=== PATIENT | female | born 1965 | race Caucasian/White ===

== ENCOUNTER → 2025-01-16 | Outpatient (CLI) | payer MEDICAID, SELFPAY ==
[2025-01-16 13:36] LABS: Albumin, Serum 4.5 gm/dL (3.5-5.0); Anion Gap 10 (7-16); BUN/Creatinine Ratio 16 Ratio (12-20); Blood Urea Nitrogen 14 mg/dL (9-23); Calcium 9.9 mg/dL (8.3-10.6); Calcium (Corrected) 9.9 mg/dL (8.5-10.1); Carbon Dioxide 26.5 mMol/L (20.0-31.0); Chloride 105 mMol/L (98-107); Creatinine (Component) 0.9 mg/dL (0.6-1.3); Glucose 104 mg/dL (74-106); Osmolality,Calculated 281 (275-295); Phosphorous 3.8 mg/dL (2.4-5.1); Potassium 4.2 mMol/L (3.4-5.1); Sodium 141 mMol/L (136-145); eGFR > 60 See Note
== END | disposition home or self-care (01) ==
PROVIDERS: PCP Registered Nurse; Referring Provider Orthopaedic Surgery; Visit Provider Orthopaedic Surgery
DX: Z01.818 Encounter for other preprocedural examination (principal)
CPT/HCPCS: 36415; 80069

== ENCOUNTER → 2025-01-21 | Outpatient (CLI) | payer MEDICAID, SELFPAY ==
--- NOTE | 2025-01-21 14:45 | XR_ITS ---
EXAMINATION: MR right shoulder with intravenous contrast TECHNIQUE: Multiple axial sagittal and coronal MRI images shoulder postintravenous administration 18 cc gadolinium Date and time: January 21, 2025, 1435 hours INDICATIONS: Shoulder pain months FINDINGS: Rotator cuff intact Distance to the acromion in the humeral head 5 mm Mild rotator cuff tendinosis Tears of the anterior superior and posterior labral margins The long head of the biceps is in the bicipital groove Mild osteoarthritis acromioclavicular joint Subscapularis tendon intact IMPRESSION: Rotator cuff intact Mild tendinosis rotator cuff Anterior superior posterior labral tears. I do not visualize a definite intra-articular tear of the bicipital tendon
== END | disposition home or self-care (01) ==
LOC: SMRI 01-26 09:47
PROVIDERS: PCP Registered Nurse; Referring Provider Orthopaedic Surgery; Visit Provider Orthopaedic Surgery
DX: S43.431A Superior glenoid labrum lesion of right shoulder, initial encounter (principal); X58.XXXA Exposure to other specified factors, initial encounter; M67.813 Other specified disorders of tendon, right shoulder
CPT/HCPCS: 73222